=== PATIENT | female | born 1965 | race Caucasian/White ===

== ENCOUNTER 2021-09-02 12:45 | Emergency (ER) | payer MEDICAID ==
[~2021-09-02] VITALS: Ht 160 cm; Wt 109.1 kg
[2021-09-02 13:18] VITALS: BP 167/91
== END 2021-09-02 13:30 | disposition home or self-care (01) ==
LOC: ER 12:47
DX: F10.10 Alcohol abuse, uncomplicated (principal); Z88.5 Allergy status to narcotic agent; Z00.00 Encounter for general adult medical examination without abnormal findings
CPT/HCPCS: 99281